=== PATIENT | male | born 1965 | race Caucasian/White ===

== ENCOUNTER → 2018-05-15 | Outpatient (CLI) | payer OTHER ==
[~2018-05-15] MED LIST: ALPR1T PO; ALPR2TAB2 PO; AMOX500C2 PO; ASP325T PO; ASP81TEC PO; ATOR40TA PO; CND32T PO; ENAL20TA PO; GMFB600T PO; HYDR-2890 PO; HYDR-3720; MEPE50TA PO; MTP25TSR PO; NAPR-243 PO; PENI500T PO; QTP25T PO; QUET300T PO; QUET300T18 PO; SERT100T8 PO; SERT50TA PO; SERT50TA2 PO; SILD50TA PO; SRTR100T PO; TRAZ150T42 PO; TRM50T PO; TRZ100T PO
--- NOTE | 2018-05-15 12:06 | Diagnostic Imaging Report ---
INDICATION: Back pain. TECHNIQUE: Three views of the lumbar spine were obtained. FINDINGS: The alignment of the lumbar spine is normal. The vertebral body heights are well-maintained. There is no spondylolysis or spondylolisthesis. No fractures are identified. IMPRESSION: Unremarkable lumbar spine series. Dictated by: Dictated on workstation # [id number]
== END ==
LOC: RAD 10:11
PROVIDERS: ATTEND Surgery
DX: Z02.71 Encounter for disability determination (principal); M54.5 Low back pain
CPT/HCPCS: 72100

== ENCOUNTER → 2019-08-23 | Outpatient (CLI) | payer OTHER ==
--- NOTE | 2019-08-23 14:16 | Diagnostic Imaging Report ---
PROCEDURE: MRI lumbar spine. TECHNIQUE: Multiplanar, multisequence MRI of the lumbar spine was performed without contrast. INDICATION: Low back pain. COMPARISON: Comparison made with prior examination from 07/12/2008. FINDINGS: The alignment of the lumbar spine is normal. The vertebral body heights are well maintained. There is no spondylolysis or spondylolisthesis. No fractures are identified. Conus medullaris is seen at L1 and is normal in appearance. The T12-L1, L1-L2, L2-L3, and L3-L4 discs are normal in height, signal intensity, and morphology. At L4-L5, there is loss of disc height and signal intensity. There are mild Modic changes in the endplates. There is some minimal annular bulging resulting in slight effacement of the ventral thecal sac. At L5-S1, there is mild annular bulging. There is some increased T2 signal intensity in the left posterior central annulus compatible with small annular fissure or tear. There is very slight effacement of the ventral thecal sac and minimal neural foraminal encroachment. The abdominal aorta is nonaneurysmal. Kidneys are normal in appearance. IMPRESSION: Mild lower lumbar spondylosis and degenerative disc disease as detailed above. Dictated by: Dictated on workstation # [id number]
== END ==
LOC: RAD 12:59
PROVIDERS: ATTEND Nurse Practitioner Community Health
DX: M51.17 Intervertebral disc disorders with radiculopathy, lumbosacral region (principal); M47.26 Other spondylosis with radiculopathy, lumbar region; N52.8 Other male erectile dysfunction; R15.9 Full incontinence of feces
CPT/HCPCS: 72148

== ENCOUNTER 2022-12-20 14:47 | Emergency (ER) | payer SELFPAY ==
[~2022-12-20] VITALS: Ht 182.8 cm; Wt 81.6 kg
--- NOTE | 2022-12-20 15:24 | ED General ---
General Chief Complaint: Skin/Wound Problems Stated Complaint: INFECTED DOG BITE Nursing Triage Note: PT AMB TO FT 1 WITH CC WOUND INFECTION FROM DOG BITE ON HIS L LEG. PT REPORTS WAS BIT BY A DOG ABOUT 10-11 DAYS AGO HAS NOT BEEN SEEN BY A DR SINCE. PT STATES WOUND IS NOW VERY PAINFUL. UNSURE IF DOG IS UP TODATE ON VACCINES. DENIES PAIN MEDS. Source of Information: Patient (VELVET EASLEY) History of Present Illness Date Seen by Provider: Dec 20, 2022 Time Seen by Provider: 03:08 Initial Comments 57yo M with no significant PMH presents to the ED with c/o worsening pain and swelling from a dog bite. Pt states that he was bitten by his neighbors dog 10- 11 days ago on his L posterior calf. Pt did not seek medical attention at that time and is unsure if dog is UTD on vaccinations. 2 days ago, pt states the wound began to become more painful and swollen. This morning, states pain became so severe that he was unable to walk and needed to borrow a cane, prompting him to come to the ED. Pt denies any drainage from wound, fevers, chills, CP, SOB, or diarrhea. Pt states that he is UTD on immunizations and believes last tetanus shot was less than 5yrs ago. (VELVET EASLEY) Initial Comments I personally seen and evaluated the patient and obtained history and physical. I agree with the documented findings. (GRETCHEN LUCIANO DO) Allergies and Home Medications Allergies Coded Allergies: No Known Drug Allergies (Unverified , 04/22/11) Patient Home Medication List Home Medication List Reviewed: Yes (VELVET EASLEY) Amoxicillin/Potassium Clav (Augmentin 500-125 Tablet) 500 Mg-125 Mg Tablet, 1 EACH PO BID Prescribed by: GRETCHEN LUCIANO MD on 12/20/22 1612 Aspirin (Aspirin Ec 81 Mg) 81 Mg Tabec, 81 MG PO DAILY PRN for HIGH BLOOD PRESSURE, (Reported) Entered as Reported by: HILARIA MURPHY on 08/31/12 1037 Atorvastatin Calcium (Lipitor 40MG) 40 Mg Tablet, 40 MG PO HS, (Reported) Entered as Reported by: CHET MUNOZ on 08/20/12 1322 Candesartan Cilexetil (Atacand) 32 Mg Tablet, 32 MG PO DAILY, (Reported) Entered as Reported by: CAROLYN DODGE on 12/29/12 1441 Hydrocodone Bit/Acetaminophen (HYDROcodone/APAP 5 MG/325 MG TAB) 1 Tab Tab, 1 TAB PO Q6H Prescribed by: GRETCHEN LUCIANO MD on 12/20/22 1612 Metoprolol Succinate (Toprol Xl 25MG) 25 Mg Tab.sr.24h, 25 MG PO HS, (Reported) Entered as Reported by: CHET MUNOZ on 08/20/12 1322 Quetiapine Fumarate (Quetiapine Fumarate) 300 Mg Tablet, 150 MG PO BID, (Reported) Entered as Reported by: ANNEMARIE COSME on 03/18/14 1045 Sertraline Hcl (Sertraline Hcl) 100 Mg Tablet, 150 MG PO HS, (Reported) Entered as Reported by: ANNEMARIE COSME on 03/18/14 1045 Review of Systems Review of Systems Constitutional: No chills, No fever EENTM: no symptoms reported Respiratory: No cough, No short of breath Cardiovascular: No chest pain, No edema Gastrointestinal: No abdominal pain, No diarrhea, No nausea, No vomiting Genitourinary: no symptoms reported Musculoskeletal: other (L calf pain secondary to wound) Skin: other (healing dog bite to posterior aspect of L calf) Psychiatric/Neurological: No Symptoms Reported Hematologic/Lymphatic: No Symptoms Reported Immunological/Allergic: no symptoms reported (VELVET EASLEY) Past Iaiiqcq-Arvhfk-Pmjdfz Hx Patient Social History Tobacco Use?: Yes Tobacco type used: Cigarettes Smoking Status: Current Everyday Smoker (18 pack years) Substance use?: No Alcohol Use?: No Pt feels they are or have been: No (VELVET EASLEY) Immunizations Up To Date Tetanus Booster (TDap): Unknown PED Vaccines UTD: Yes (VELVET EASLEY) Past Medical History Surgeries: No Respiratory: No Cardiac: No Neurological: No Reproductive Disorders: No Gastrointestinal: No Musculoskeletal: Yes Chronic Back Pain Endocrine: No HEENT: No Cancer: No Psychosocial: Yes Anxiety, Suicide Attempts, Depression Integumentary: No (VELVET EASLEY) Family Medical History Family history: Arthritis 03 FATHER (back problems) Family history: Cardiovascular disease 03 FATHER Myocardial infarction 03 FATHER Physical Exam Vital Signs Vital Signs - First Documented 12/20/22 14:55 Temp 36.9 Pulse 112 Resp 20 B/P (MAP) 148/100 (116) Pulse Ox 100 O2 Delivery Room Air (GRETCHEN LUCIANO DO) Vital Signs Capillary Refill : Less Than 3 Seconds (VELVET EASLEY) Height, Weight, BMI Height: 6'0.00" Weight: 219lbs. 12.8oz. 99.545042ig; 24.00 BMI Method:Stated General Appearance: Mild Distress (secondary to pain) HEENT: PERRL/EOMI, Moist Mucous Membranes Respiratory: Lungs Clear, Normal Breath Sounds, No Accessory Muscle Use, No Respiratory Distress Cardiovascular: Regular Rate, Rhythm, No Murmur Gastrointestinal: Non Tender, Soft Extremity: Inflammation (L posterior calf with associated swelling of distal leg) Neurologic/Psychiatric: Alert, Oriented x3 Skin: Damp, Other (eschar on L proximal posterior calf with surrounding erythe ma and induration; slight pocket of fluctuance noted by wound on posterior medial aspect of calf; swelling distal to wound to foot) (VELVET EASLEY) Progress/Results/Core Measures Suspected Sepsis SIRS Temperature: Pulse: 112 Respiratory Rate: 20 Blood Pressure 148 /100 Mean: 116 (VELVET EASLEY) Results/Orders My Orders Orders - GRETCHEN LUCIANO DO Ceftriaxone (Rocephin) (12/20/22 15:30) Lidocaine 1% Inj 20 Ml (Xylocaine 1% Inj (12/20/22 15:30) (GRETCHEN LUCIANO DO) Medications Given in ED (GRETCHEN LUICANO DO) Vital Signs/I&O 12/20/22 12/20/22 14:55 16:24 Temp 36.9 Pulse 112 100 Resp 20 20 B/P (MAP) 148/100 (116) 134/93 Pulse Ox 100 100 O2 Delivery Room Air Room Air (GRETCHEN LUCIANO DO) Vital Signs/I&O Capillary Refill : Less Than 3 Seconds (VELVET EASLEY) Blood Pressure Mean: 116 Departure Communication (Admissions) Patient is hemodynamically stable. Tetanus is per his report. Unclear vaccination status of the animal however the bite happened about 11 days ago. I offered to start the rabies vaccine series here and did indicate to the patient that this can be life-threatening. He states understanding and declines. He wants to follow-up with the criminal judge who is a friend of his to ensure that the animal is up-to-date on his vaccinations. He is quite sure that it is. His wound looks fairly clean though he does have significant induration in the area. I do not feel any fluctuance at this time and no drainable areas at this time. He is afebrile, non toxic. Had clean the wound, dressed it. He is given antibiotics, IM Rocephin here and discharged with p.o. Augmentin. He is given strict return precautions if he does not improve in the next 24 to 48 hours that he would likely need to be admitted to the hospital. He again declines rabies vaccine so we will go ahead and discharge him with recommendation to follow-up with the health department in the ER if he finds out that the dog is not vaccinated though again he states he is very sure that it is patient is discharged in stable condition. (GRETCHEN LUCIANO DO) Impression Primary Impression: Dog bite of calf Qualified Codes: S81.852A - Open bite, left lower leg, initial encounter; W54.0XXA - Bitten by dog, initial encounter Disposition: HOME, SELF-CARE Condition: Stable Departure-Patient Inst. Referrals: NO,LOCAL PHYSICIAN (PCP/Family) Primary Care Physician Patient Instructions: Animal Bites ED, Wound Care ED Add. Discharge Instructions: Please take antibiotics as prescribed until they are gone. It is important that you take them until they are gone and do not stop taking them once you start feeling better. Take the pain medication as prescribed as needed. Do not drive or make important decisions while taking this as it may make you drowsy. I have offered you the start of the rabies vaccination series today. You have declined. Please follow-up with the health department immediately if you find out that the dog has not been vaccinated. Return to the emergency department in 48 hours or so if your symptoms are worsening or for drainage that looks like pus, fevers. You would likely need admitted for IV antibiotics if this were the case. All discharge instructions reviewed with patient and/or family. Voiced understanding. Scripts Hydrocodone Bit/Acetaminophen (HYDROcodone/APAP 5 MG/325 MG TAB) 1 Tab Tab 1 TAB PO Q6H for Pain for 3 Days, #12 TAB Prov: GRETCHEN LUCIANO DO 12/20/22 Amoxicillin/Potassium Clav (Augmentin 500-125 Tablet) 500 Mg-125 Mg Tablet 1 EACH PO BID for 10 Days, #20 TAB Prov: GRETCHEN LUCIANO DO 12/20/22 VELVET EASLEY Dec 20, 2022 15:24 GRETCHEN LUCIANO DO Dec 20, 2022 16:17
[2022-12-20] MEDS ORDERED: cefTRIAXone 1,000 MG VIAL IM ONE (15:30)
[2022-12-20] MEDS ORDERED: LIDOCAINE 1% INJ 20 ML VIAL INJ ONE (15:30)
[2022-12-20] MEDS ORDERED: AMOX-355 PO (16:12)
[2022-12-20] MEDS ORDERED: ACHD5005 PO (16:12)
[2022-12-20 16:24] VITALS: BP 134/93
== END 2022-12-20 16:24 | disposition home or self-care (01) ==
LOC: EDUNIT# 14:47 → ER 14:51
DX: S81.852A Open bite, left lower leg, initial encounter (principal); F17.210 Nicotine dependence, cigarettes, uncomplicated; Z28.310 Unvaccinated for COVID-19; W54.0XXA Bitten by dog, initial encounter
CPT/HCPCS: 99284

== ENCOUNTER 2023-10-21 02:06 | Emergency (ER) | payer OTHER ==
[~2023-10-21] VITALS: Ht 182 cm; Wt 81.6 kg
[~2023-10-21 02:06] MED LIST changes: +ACHD5005 PO; +AMOX-355 PO
--- NOTE | 2023-10-21 02:34 | ED Chest Pain ---
General Chief Complaint: Chest Pain Stated Complaint: FEELS LIKE HAVE A HEART ATTACH Nursing Triage Note: pt presents to ED with c/o sternal chest pain that radiates to back that began >24 hours ago with SOB, nausea, and vomiting. pt hasn't been on BP meds for 1.5 years. Source: patient Exam Limitations: no limitations History of Present Illness Date Seen by Provider: Oct 21, 2023 Time Seen by Provider: 02:23 Initial Comments 57-year-old male presents the emergency department today for chest pain. He states symptoms started yesterday afternoon and have been persistent. He describes the pain as sharp stabbing his anterior chest that radiates to his back and is also present in all of his joints. Denies any fevers chills cough. He has had some shortness of breath and nausea with a single episode of vomiting. Emesis was nonbloody nonbilious. He has never had similar pains in the past. He has not tried anything for symptoms today. No known cardiac history. He is supposed to be on blood pressure medications but has not taken them in greater than 1 year. All other systems reviewed and negative except documented per HPI. Voice recognition software was used to help create this chart Allergies and Home Medications Allergies Coded Allergies: No Known Drug Allergies (Unverified , 04/22/11) Patient Home Medication List Home Medication List Reviewed: Yes Amoxicillin/Potassium Clav (Augmentin 500-125 Tablet) 500 Mg-125 Mg Tablet, 1 EACH PO BID Prescribed by: GRETCHEN LUCIANO MD on 12/20/22 1612 Aspirin (Aspirin Ec 81 Mg) 81 Mg Tabec, 81 MG PO DAILY PRN for HIGH BLOOD PRESSURE, (Reported) Entered as Reported by: HILARIA MURPHY on 08/31/12 1037 Atorvastatin Calcium (Lipitor 40MG) 40 Mg Tablet, 40 MG PO HS, (Reported) Entered as Reported by: CHET MUNOZ on 08/20/12 1322 Candesartan Cilexetil (Atacand) 32 Mg Tablet, 32 MG PO DAILY, (Reported) Entered as Reported by: CAROLYN DODGE on 12/29/12 1441 Hydrocodone Bit/Acetaminophen (HYDROcodone/APAP 5 MG/325 MG TAB) 1 Tab Tab, 1 TAB PO Q6H Prescribed by: GRETCHEN LUCIANO MD on 12/20/22 1612 Metoprolol Succinate (Toprol Xl 25MG) 25 Mg Tab.sr.24h, 25 MG PO HS, (Reported) Entered as Reported by: CHET MUNOZ on 08/20/12 1322 Quetiapine Fumarate (Quetiapine Fumarate) 300 Mg Tablet, 150 MG PO BID, (Reported) Entered as Reported by: ANNEMARIE COSME on 03/18/14 1045 Sertraline Hcl (Sertraline Hcl) 100 Mg Tablet, 150 MG PO HS, (Reported) Entered as Reported by: ANNEMARIE COSME on 03/18/14 1045 Review of Systems Review of Systems Constitutional: see HPI Past Vsltuwy-Xshhcd-Ntangm Hx Patient Social History Tobacco Use?: Yes Tobacco type used: Cigarettes Smoking Status: Current Everyday Smoker Substance use?: Yes Substance type: Marijuana Alcohol Use?: No Pt feels they are or have been: No Immunizations Up To Date Tetanus Booster (TDap): Unknown PED Vaccines UTD: Yes Influenza Vaccine Up-to-Date: No; Not Current Past Medical History Surgeries: No Respiratory: No Cardiac: No Neurological: No Reproductive Disorders: No Gastrointestinal: No Musculoskeletal: Yes Chronic Back Pain Endocrine: No HEENT: No Cancer: No Psychosocial: Yes Anxiety, Suicide Attempts, Depression Integumentary: No Family Medical History Family history: Arthritis 03 FATHER (back problems) Family history: Cardiovascular disease 03 FATHER Myocardial infarction 03 FATHER Physical Exam Vital Signs Vital Signs - First Documented 10/21/23 02:28 Pulse 98 Resp 18 B/P (MAP) 133/98 (110) Pulse Ox 98 O2 Delivery Room Air Capillary Refill : Less Than 3 Seconds Height, Weight, BMI Height: 6'0.00" Weight: 219lbs. 12.8oz. 99.875195at; 24.00 BMI Method:Stated General Appearance: No Apparent Distress, WD/WN HEENT: Normal ENT Inspection, Pharynx Normal Neck: Normal Inspection, Non Tender, Supple Respiratory: Chest Non Tender, Lungs Clear, Normal Breath Sounds, No Accessory Muscle Use, No Respiratory Distress Cardiovascular: Regular Rate, Rhythm, No Murmur, Normal Peripheral Pulses Gastrointestinal: Normal Bowel Sounds, No Organomegaly, Non Tender, Soft Extremity: Normal Capillary Refill, Normal Inspection, No Calf Tenderness Neurologic/Psychiatric: Alert, Oriented x3, No Motor/Sensory Deficits Skin: Normal Color, Warm/Dry Progress/Results/Core Measures Results/Orders Lab Results Laboratory Tests Test 10/21/23 02:30 Range/Units White Blood Count 7.6 4.3-11.0 10^3/uL Red Blood Count 4.03 L 4.30-5.52 10^6/uL Hemoglobin 12.2 L 13.3-17.7 g/dL Hematocrit 37 L 40-54 % Mean Corpuscular Volume 91 80-99 fL Mean Corpuscular Hemoglobin 30 25-34 pg Mean Corpuscular Hemoglobin Concent 33 32-36 g/dL Red Cell Distribution Width 12.0 10.0-14.5 % Platelet Count 220 130-400 10^3/uL Mean Platelet Volume 10.0 9.0-12.2 fL Immature Granulocyte % (Auto) 0 % Neutrophils (%) (Auto) 60 42-75 % Lymphocytes (%) (Auto) 24 12-44 % Monocytes (%) (Auto) 12 0-12 % Eosinophils (%) (Auto) 3 0-10 % Basophils (%) (Auto) 1 0-10 % Neutrophils # (Auto) 4.6 1.8-7.8 10^3/uL Lymphocytes # (Auto) 1.8 1.0-4.0 10^3/uL Monocytes # (Auto) 0.9 0.0-1.0 10^3/uL Eosinophils # (Auto) 0.2 0.0-0.3 10^3/uL Basophils # (Auto) 0.1 0.0-0.1 10^3/uL Immature Granulocyte # (Auto) 0.0 0.0-0.1 10^3/uL Sodium Level 137 135-145 MMOL/L Potassium Level 4.2 3.6-5.0 MMOL/L Chloride Level 103 98-107 MMOL/L Carbon Dioxide Level 29 21-32 MMOL/L Anion Gap 5 5-14 MMOL/L Blood Urea Nitrogen 21 H 7-18 MG/DL Creatinine 1.28 0.60-1.30 MG/DL Estimat Glomerular Filtration Rate 66 BUN/Creatinine Ratio 16 Glucose Level 102 70-105 MG/DL Calcium Level 9.1 8.5-10.1 MG/DL Corrected Calcium 9.3 8.5-10.1 MG/DL Magnesium Level 1.8 1.6-2.4 MG/DL Total Bilirubin 0.3 0.1-1.0 MG/DL Aspartate Amino Transf (AST/SGOT) 25 5-34 U/L Alanine Aminotransferase (ALT/SGPT) 18 0-55 U/L Alkaline Phosphatase 70 40-136 U/L Troponin I < 0.028 <0.028 NG/ML Total Protein 7.1 6.4-8.2 GM/DL Albumin 3.8 3.2-4.5 GM/DL My Orders Orders - MUSTAPHAGRETCHEN King DO Ekg Tracing (10/21/23 02:24) Cbc And Automated Diff (10/21/23 02:34) Magnesium (10/21/23 02:34) Chest 1 View, Ap/Pa Only (10/21/23 02:34) Ekg Tracing (10/21/23 02:34) Comprehensive Metabolic Panel (10/21/23 02:34) Monitor-Rhythm Ecg Trace Only (10/21/23 02:34) Ed Iv/Invasive Line Start (10/21/23 02:34) Troponin I Rebecca (10/21/23 02:34) Aspirin Chewable Tablet (Aspirin Chewabl (10/21/23 02:45) Medications Given in ED Current Medications Medications Dose Ordered Sig/Juliana Route Start Time Stop Time Status Last Admin Dose Admin Aspirin 324 mg ONCE ONCE PO 10/21/23 02:45 10/21/23 02:46 DC 10/21/23 02:45 324 MG Vital Signs/I&O 10/21/23 02:28 Pulse 98 Resp 18 B/P (MAP) 133/98 (110) Pulse Ox 98 O2 Delivery Room Air Blood Pressure Mean: 110 Comment Sinus tachycardia with rate of 105 bpm. Normal intervals. Normal axis. No ST or T wave abnormalities. No ectopy. No STEMI. Departure Communication (Admissions) Patient is hemodynamically stable. Heart score is 3. EKG is nonischemic and troponin is negative. Remainder of chemistry is negative. CBC shows no evidence for leukocytosis, anemia. Chest x-ray shows no acute cardiopulmonary abnormality. I have independently reviewed images. Impression Primary Impression: Atypical chest pain Disposition: HOME, SELF-CARE Condition: Stable Departure-Patient Inst. Referrals: NO,LOCAL PHYSICIAN (PCP/Family) Primary Care Physician Patient Instructions: Chest Pain, Adult ED Add. Discharge Instructions: There is no evidence for a heart attack at this time. Your chest x-ray shows no evidence for pneumonia, collapsed lung or other emergent condition. Use ibuprofen and Tylenol as needed for pains. Return to the emergency department for any severe concerns. Follow-up with your primary doctor for any nonemergent needs. All discharge instructions reviewed with patient and/or family. Voiced understanding. GRETCHEN LUCIANO DO Oct 21, 2023 02:34
[2023-10-21 02:41] LABS: BASOPHILS # (AUTO) 0.1 10^3/uL (0.0-0.1); BASOPHILS % (AUTO) 1 % (0-10); EOSINOPHILS # (AUTO) 0.2 10^3/uL (0.0-0.3); EOSINOPHILS % (AUTO) 3 % (0-10); HEMATOCRIT 37 % (40-54); HEMOGLOBIN 12.2 g/dL (13.3-17.7); LYMPHOCYTES # (AUTO) 1.8 10^3/uL (1.0-4.0); LYMPHOCYTES % (AUTO) 24 % (12-44); MEAN CORPUSCULAR HEMOGLOBIN 30 pg (25-34); MEAN CORPUSCULAR HGB CONC 33 g/dL (32-36); MEAN CORPUSCULAR VOLUME 91 fL (80-99); MONOCYTES # (AUTO) 0.9 10^3/uL (0.0-1.0); MONOCYTES % (AUTO) 12 % (0-12); NEUTROPHILS # (AUTO) 4.6 10^3/uL (1.8-7.8); NEUTROPHILS % (AUTO) 60 % (42-75); PLATELET COUNT 220 10^3/uL (130-400); WHITE BLOOD COUNT 7.6 10^3/uL (4.3-11.0)
[2023-10-21] MEDS ORDERED: ASPIRIN 81 MG CHEWABLE TABLET PO ONE (02:45)
[2023-10-21 02:49] LABS: ALBUMIN 3.8 GM/DL (3.2-4.5)
[2023-10-21 02:50] LABS: CHLORIDE 103 MMOL/L (98-107); POTASSIUM 4.2 MMOL/L (3.6-5.0); SODIUM 137 MMOL/L (135-145)
[2023-10-21 02:51] LABS: CALCIUM 9.1 MG/DL (8.5-10.1)
[2023-10-21 02:52] LABS: GLUCOSE 102 MG/DL (70-105); TOTAL PROTEIN 7.1 GM/DL (6.4-8.2)
[2023-10-21 02:53] LABS: CARBON DIOXIDE 29 MMOL/L (21-32)
[2023-10-21 02:54] LABS: BILIRUBIN,TOTAL 0.3 MG/DL (0.1-1.0)
[2023-10-21 02:56] LABS: ALKALINE PHOSPHATASE 70 U/L (40-136); CREATININE SERUM 1.28 MG/DL (0.60-1.30); GFR ESTIMATED 66
[2023-10-21 02:57] LABS: BUN/CREATININE RATIO 16
[2023-10-21 02:58] LABS: MAGNESIUM 1.8 MG/DL (1.6-2.4)
[2023-10-21 02:59] LABS: ALANINE AMINOTRANSFERASE 18 U/L (0-55)
[2023-10-21 03:15] VITALS: BP 131/89
--- NOTE | 2023-10-21 07:43 | Diagnostic Imaging Report ---
EXAMINATION: Chest radiograph, portable AP view. DATE: 10/21/2023 2:55 AM INDICATION: 57-year-old male, chest pain of sudden onset. COMPARISON: None. FINDINGS: Heart size and mediastinal contours are unremarkable. There is no identified pneumothorax. There is no large pleural effusion. There is no identified focal airspace consolidation. IMPRESSION: 1. No identified acute cardiopulmonary abnormality. Dictated by: Dictated on workstation # [id number]
== END 2023-10-21 03:15 | disposition home or self-care (01) ==
LOC: EDUNIT# 02:06 → ER 02:15
DX: R07.89 Other chest pain (principal); F17.210 Nicotine dependence, cigarettes, uncomplicated
CPT/HCPCS: 36415; 71045; 80053; 83735; 84484; 85025; 93005; 93041